=== PATIENT | male | born 1965 | race Caucasian/White ===

== ENCOUNTER → 2021-08-24 16:00 | Outpatient (CLI) | payer OTHER, SELFPAY ==
[2021-08-24 18:04] LABS: Alanine Aminotransferase 25 U/L (12-78); Albumin Level 4.5 g/dl (3.5-5.0); Albumin/Globulin Ratio 1.8 (1.1-1.8); Alkaline Phosphatase 63 U/L (38-126); Anion Gap 11.5 mEq/L (5-15); Aspartate Amino Transferase 31 U/L (17-59); Bilirubin,Total 0.6 mg/dl (0.2-1.3); Blood Urea Nitrogen 9 mg/dl (9-20); Calcium 9.1 mg/dl (8.4-10.2); Carbon Dioxide 28 mmol/L (22.0-30.0); Chloride 104 mmol/L (98-107); Estimated Glomerular Filt Rate 88 ml/min (>60); GFR (African American) 106 ML/MIN (>60); Globulin 2.5 g/dL (1.3-3.2); Glucose 85 mg/dl (74-100); Potassium 4.5 mmoL/L (3.5-5.1); Sodium 139 mmol/L (136-145)
[2021-08-24 18:12] LABS: Basophils # 0.1 K/mm3 (0-0.2); Basophils % 0.7 % (0.1-2.0); Eosinophils # 0.5 K/mm3 (0.0-0.4); Eosinophils % 4.2 % (0.1-12.0); Hematocrit 48.2 % (42.0-52.0); Hemoglobin 16.4 g/dL (14.1-18.0); Lymphocytes # 3.1 K/mm3 (0.7-4.5); Lymphocytes % 26.7 % (10-50); Mean Corpuscular HGB Conc 33.9 g/dL (31.8-35.4); Mean Corpuscular Hemoglobin 32.3 pg (27.0-31.2); Mean Corpuscular Volume 95.3 fl (80-94); Monocytes # 0.8 K/mm3 (0.1-1.0); Monocytes % 6.9 % (1.7-9.3); Neutrophils # 7.2 K/mm3 (1.8-7.8); Neutrophils % 61.5 % (37.0-80.0); Platelet Count 320 K/mm3 (142-424); Red Blood Count 5.06 M/mm3 (4.60-6.20); White Blood Count 11.6 K/mm3 (4.8-10.8)
[2021-08-24 18:14] LABS: Hemoglobin A1C 5.3 % (4.0-6.0)
[2021-08-24 18:34] LABS: Thyroid Stimulating Hormone 2.14 uIU/mL (0.465-4.68)
== END ==
PROVIDERS: Visit Provider Family Medicine
DX: Z00.00 Encounter for general adult medical examination without abnormal findings (principal); Z79.899 Other long term (current) drug therapy
CPT/HCPCS: 80053; 83036; 84443; 85025

== ENCOUNTER → 2021-11-23 12:19 | Outpatient (CLI) | payer SELFPAY ==
--- NOTE | 2021-11-23 12:22 | XR_ITS ---
FINAL REPORT CLINICAL HISTORY: cough x's months FINDINGS: 2 views of the chest were obtained . 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 The heart is normal in size. The mediastinum is within normal limits. The lungs are clear. There is no pneumothorax. Osseous structures demonstrate postoperative changes of the left clavicle. IMPRESSION: No acute cardiopulmonary process. Reviewed, Interpreted and Dictated by Danny Barrios III, MD Transcribed by Sara Dee Authenticated by Danny Barrios III, MD on 11/23/2021 01:37:34 PM [facility]
== END ==
PROVIDERS: PCP Family Medicine; Visit Provider Family Medicine
DX: R05.9 Cough, unspecified (principal)
CPT/HCPCS: 71046

== ENCOUNTER → 2022-04-05 13:15 | Outpatient (CLI) | payer OTHER, SELFPAY | PROVIDERS: PCP Family Medicine; Visit Provider Family Medicine | DX: R31.9 Hematuria, unspecified (principal); B95.2 Enterococcus as the cause of diseases classified elsewhere | CPT/HCPCS: 87086; 87088; 87186 ==

== ENCOUNTER → 2022-09-24 09:43 | Outpatient (CLI) | payer OTHER, SELFPAY ==
--- NOTE | 2022-09-24 09:47 | XR_ITS ---
FINAL REPORT TECHNIQUE: Chest PA & Lateral CLINICAL HISTORY: wheezing COMPARISON: 11/23/2021 FINDINGS: 2 views of the chest were performed. The heart size is at the upper limits of normal. The mediastinum is within normal limits. There are chronic changes in both lungs. There are no pleural effusions. There is no pneumothorax. There is a side plate and screws securing a healed fracture of the left clavicle. IMPRESSION: Chronic changes in both lungs with no acute cardiopulmonary process. Reviewed, Interpreted and Dictated by Nimesh Lizama MD Transcribed by Jocy Stewart Authenticated and [facility]
[2022-09-24 10:31] LABS: Basophils # 0.1 K/mm3 (0-0.2); Basophils % 0.8 % (0.1-2.0); Eosinophils # 0.3 K/mm3 (0.0-0.4); Eosinophils % 2.8 % (0.1-12.0); Hematocrit 44.6 % (42.0-52.0); Hemoglobin 14.7 g/dL (14.1-18.0); Lymphocytes # 2.2 K/mm3 (0.7-4.5); Lymphocytes % 18.3 % (10-50); Mean Corpuscular Hemoglobin 31.6 pg (27.0-31.2); Mean Corpuscular Volume 95.9 fl (80-94); Mean Platelet Volume 8.7 fl (7.4-10.4); Monocytes # 0.9 K/mm3 (0.1-1.0); Monocytes % 7.3 % (1.7-9.3); Neutrophils # 8.6 K/mm3 (1.8-7.8); Neutrophils % 70.7 % (37.0-80.0); Platelet Count 302 K/mm3 (142-424); Red Blood Count 4.66 M/mm3 (4.60-6.20); Red Cell Distribution Width 13.4 % (11.5-17.5); White Blood Count 12.2 K/mm3 (4.8-10.8)
[2022-09-24 11:15] LABS: Alanine Aminotransferase 30 U/L (12-78); Albumin Level 4.3 g/dl (3.5-5.0); Alkaline Phosphatase 55 U/L (38-126); Anion Gap 11.5 mEq/L (5-15); Aspartate Amino Transferase 31 U/L (17-59); Bilirubin,Direct 0.3 mg/dl (0.0-0.4); Bilirubin,Indirect 0.3 mg/dL (0.0-0.9); Bilirubin,Total 0.6 mg/dl (0.2-1.3); Bilirubin,Unconjugated 0.3 mg/dL (0.0-1.1); Blood Urea Nitrogen 11 mg/dl (9-20); Calcium 8.7 mg/dl (8.4-10.2); Carbon Dioxide 29 mmol/L (22.0-30.0); Chloride 102 mmol/L (98-107); Chol/HDL Ratio 3.1 (1-3.5); Cholesterol 132 mg/dl (140-200); Estimated Glomerular Filt Rate 100 ml/min (>60); GFR (African American) 121 ML/MIN (>60); Glucose 88 mg/dl (74-100); HDL Cholesterol 43 mg/dl (40-60); Magnesium 2.2 mg/dl (1.6-2.3); Potassium 4.5 mmoL/L (3.5-5.1); Sodium 138 mmol/L (136-145); Total Protein,Serum 6.5 g/dl (6.3-8.2); Triglycerides 54 mg/dl (30-150); VLDL Cholesterol 11 mg/dL (0-40)
[2022-09-24 11:26] LABS: Direct LDL Cholesterol 81.98 mg/dL (100-129)
[2022-09-24 11:31] LABS: Free T4 (Free Thyroxine) 1.12 ng/dl (0.78-2.19)
[2022-09-24 11:46] LABS: Thyroid Stimulating Hormone 0.86 uIU/mL (0.465-4.68)
== END ==
PROVIDERS: PCP Family Medicine; Visit Provider Physician Assistant
DX: R06.00 Dyspnea, unspecified (principal); R07.9 Chest pain, unspecified; I10 Essential (primary) hypertension; R94.31 Abnormal electrocardiogram [ECG] [EKG]; E66.9 Obesity, unspecified; Z68.41 Body mass index [BMI] 40.0-44.9, adult
CPT/HCPCS: 36415; 71046; 80048; 80061; 80076; 83735; 84439; 84443; 85025

== ENCOUNTER → 2023-04-04 09:41 | Outpatient (CLI) | payer OTHER, SELFPAY | PROVIDERS: PCP Family Medicine; Visit Provider Family Medicine | DX: R06.09 Other forms of dyspnea (principal) ==

== ENCOUNTER → 2023-04-05 09:08 | Outpatient (CLI) | payer OTHER, SELFPAY ==
[2023-04-04 18:52] LABS: Basophils # 0.1 K/mm3 (0-0.2); Basophils % 0.3 % (0.1-2.0); Eosinophils # 0.1 K/mm3 (0.0-0.4); Eosinophils % 0.3 % (0.1-12.0); Hematocrit 48.1 % (42.0-52.0); Hemoglobin 15.7 g/dL (14.1-18.0); Lymphocytes # 1.5 K/mm3 (0.7-4.5); Lymphocytes % 9.1 % (10-50); Mean Corpuscular HGB Conc 32.7 g/dL (31.8-35.4); Mean Corpuscular Hemoglobin 31.7 pg (27.0-31.2); Mean Corpuscular Volume 96.8 fl (80-94); Mean Platelet Volume 10.4 fl (7.4-10.4); Monocytes # 0.7 K/mm3 (0.1-1.0); Monocytes % 4.2 % (1.7-9.3); Neutrophils # 14.2 K/mm3 (1.8-7.8); Neutrophils % 86.1 % (37.0-80.0); Platelet Count 322 K/mm3 (142-424); Red Blood Count 4.97 M/mm3 (4.60-6.20); Red Cell Distribution Width 13.6 % (11.5-17.5); White Blood Count 16.5 K/mm3 (4.8-10.8)
[2023-04-04 19:01] LABS: MANUAL DIFFERENTIAL MANUAL DIFFERENTIAL (MANUAL DIFF)
[2023-04-04 19:03] LABS: Alanine Aminotransferase 33 U/L (12-78); Albumin Level 4.4 g/dl (3.5-5.0); Albumin/Globulin Ratio 1.5 (1.1-1.8); Alkaline Phosphatase 67 U/L (38-126); Anion Gap 15.5 mEq/L (5-15); Aspartate Amino Transferase 33 U/L (17-59); Bilirubin,Total 0.6 mg/dl (0.2-1.3); Blood Urea Nitrogen 15 mg/dl (9-20); Calcium 9.4 mg/dl (8.4-10.2); Carbon Dioxide 27 mmol/L (22.0-30.0); Chloride 103 mmol/L (98-107); Chol/HDL Ratio 3.8 (1-3.5); Cholesterol 181 mg/dl (140-200); Estimated Glomerular Filt Rate 87 ml/min (>60); GFR (African American) 106 ML/MIN (>60); Globulin 2.9 g/dL (1.3-3.2); Glucose 98 mg/dl (74-100); HDL Cholesterol 48 mg/dl (40-60); Potassium 4.5 mmoL/L (3.5-5.1); Sodium 141 mmol/L (136-145); Total Protein,Serum 7.3 g/dl (6.3-8.2); Triglycerides 57 mg/dl (30-150); VLDL Cholesterol 11 mg/dL (0-40)
[2023-04-04 19:13] LABS: Direct LDL Cholesterol 106.06 mg/dL (100-129)
[2023-04-04 19:33] LABS: Prostate Specific Ag Screen 1.2 ng/ml (0.0-4.0)
[2023-04-04 19:37] LABS: Eosinophils % 2 % (0-3); Lymphocytes % 10 % (10-50); Monocytes % 2 % (2-9); Neutrophils % 86 % (42-76); Platelet Estimate Normal; RBC Morphology Normal; Total Cells Counted 100
== END ==
LOC: LAB.DROPOF 09:10
PROVIDERS: Visit Provider Family Medicine
DX: R06.09 Other forms of dyspnea (principal); I10 Essential (primary) hypertension; F41.9 Anxiety disorder, unspecified; N52.9 Male erectile dysfunction, unspecified; E66.9 Obesity, unspecified; Z68.41 Body mass index [BMI] 40.0-44.9, adult; Z87.891 Personal history of nicotine dependence
CPT/HCPCS: 80053; 80061; 85007; 85025; G0103

== ENCOUNTER → 2023-04-18 07:06 | Outpatient (CLI) | payer OTHER, SELFPAY ==
--- NOTE | 2023-04-18 07:11 | NM_ITS ---
APPROVED REPORT Exam: Nuclear Stress Test Indication: chest pain..soa..fatigue Patient Location: Outpatient Stress Tech: Margareth Romeo [place] Tech:RADHAMES Hickman RT(R)(N) Ht: 6 ft 0 in Wt: 326 lbs HR: 63 bpm BP: 131/71 mmHg BSA: 2.62 m2 Rhythm: NSR TID: 1.28 History: chest pain..soa..fatigue Procedure: Patient received 0.4 mg of intravenous Lexiscan, resting heart rate 63 bpm, resting blood pressure 131/71 mmHg, with Lexiscan maximum heart rate achieved was 79 bpm which is 85 % of the maximum predicted heart rate and blood pressure was 141/69 mmHg. With Lexiscan, patient denied any complaint of chest pain. Cardiac Stress and Resting SPECT Images: Cardiac Stress and Resting SPECT images were obtained using technetium 99m Myoview 31.5 mCi stress and 10.90 mCi at rest. Resting and stress imaging in supine and prone positions demonstrate a medium sized, moderate, partially reversible perfusion defect in the basal to mid inferior LV wall. There is increased transient ischemic dilatation ratio (TID 1.28), suggestive of possible multivessel disease or balanced ischemia. Gated imaging demonstrates normal global LV systolic function. There is mild hypokinesis of the basal inferior LV wall. LVEF is calculated at 54%. Conclusion: Medium sized, moderate, partially reversible perfusion defect in the basal to mid inferior LV wall. There is increased transient ischemic dilatation ratio (TID 1.28), suggestive of possible multivessel disease or balanced ischemia. Gated imaging demonstrates normal global LV systolic function. There is mild hypokinesis of the basal inferior LV wall. LVEF is calculated at 54%. Electronically signed by : Santa Gavin MD 04/22/2023 21:11:59
--- NOTE | 2023-04-18 07:14 | CA_ITS ---
APPROVED REPORT EXAM: Comprehensive 2D, Doppler, and color-flow Echocardiogram Environmental Manager: Sara Morton CRT Ht: 6 ft 0 in Wt: 326lbs BSA: 2.62 BP: 128/64 mmHg Indications: Chest Pain, Obesity, Dyspnea, Peripheral Edema 2D Dimensions LVOT 2.02 cm (M/F) 1.5-2.5 LA Volume 38.70 mL LA Volume Index 14.40 mL/m2 (M/F) 16-34 M-Mode Dimensions RVDd 2.90 cm (0.9-2.6) LA Diam 3.37 cm (1.9-4.0) LVDd 6.20 cm (3.5-5.7) Ao Diam 4.43 cm (2.0-3.7) LVDs 4.31 cm (3.5-5.7) IVSd 1.41 cm (0.6-1.1) PWd 0.64 cm (0.6-1.1) EF (Teich) 57.00% FS 30.50% EDV (Teich) 194.00 mL ESV (Teich) 83.50 mL LV Diastology E Decel Time 183.00 (160-240 msec) E/A Ratio 1.04 MED E' 10.70 (< 7 cm/sec) MED A' 12.50 cm/s E'/MED E' Ratio 7.26 (>14) LAT E' 10.10 (<10 cm/sec) LAT A' 9.80 cm/s E/LAT E' Ratio 7.69 (>14) Aortic Valve AO Peak GR. 6.60 mmHg Mitral Valve MV A Velocity 75.00 (40-130 cm/s) E/A Ratio 1.04 MV Decel. Time 183.00 (160-240 ms) Pulmonary Valve PV Peak Velocity 119.00 (50-150 cm/s) Tricuspid Valve TR P. Velocity 180.00 cm/s RAP Estimate 10.00 mmHg RVSP 22.90 mmHg Left Ventricle The left ventricle is normal size when adjusted for body surface area. The left ventricular systolic function is low normal. There is normal there is increased LV wall thickness. There is borderline global hypokinesis present. The left ventricular diastolic function is normal. LVEF is 50%. Right Ventricle The right ventricle is normal size. The right ventricular systolic function is normal. Atria The left atrium size is normal. The right atrium size is normal. There is no Doppler evidence of interatrial shunt. Aortic Valve The aortic valve opens well. There is no aortic valvular stenosis. Trace aortic regurgitation. Mitral Valve The mitral valve is normal in structure. No evidence of mitral valve stenosis. Mild mitral regurgitation. Tricuspid Valve The tricuspid valve leaflets are thin and pliable. Mild tricuspid regurgitation. RVSP is normal. Pulmonic Valve The pulmonary valve is normal in structure. Trace pulmonic regurgitation. Great Vessels The aortic root is normal in size. The ascending aorta is normal in size. IVC is normal in size and collapses >50% with inspiration. Pericardium There is no pericardial effusion. Other Information Study Quality: Fair Conclusion Normal LV size with low-normal LV systolic function (LVEF 50%). Mild MR, mild TR. Electronically signed by : Santa Gavin MD 04/19/2023 21:27:58
--- NOTE | 2023-04-18 09:18 | CA_ITS ---
APPROVED REPORT Exam: Pharmacologic Technologist: Margareth Jean, Ht: 6 ft 0 in Wt: 326 lbs BSA: 2.62 m2 HR: 62 bpm BP: 131/71 mmHg Rhythm: NSR Medical History Medications: Alprazolam,,,,, Aspirin,,,,, Flomax,,,,, Losartan,,,,, Duoneb,,,,, Albuterol,,,,, Prednisone,,,,, Fluoxetine,,,,, CiALIS,,,,, TorSEMIDE,,,,, Trelegy Ellipta,,,,, Potassium Chloride ER,,,,, Stress Test Details Test: LEXISCAN Reason for pharmacologic stress test: physical limitation. HR Resting HR: 63 bpm Max Heart Rate (APMHR): 164 bpm Max HR Achieved: 79 bpm Target HR (85% APMHR): 139 bpm % of APMHR: 48 Recovery HR: 65 bpm BP Resting BP: 131.0/71.0 mmHg Max BP: 141.0/69.0 mmHg Recovery BP: 120.0/66.0 mmHg ECG Resting ECG: NSR, NS ST-T abns inferiorly & laterally Stress ECG: No significant ST changes Arrhythmia: None Clinical Exercise duration: 04:00 min Highest Stage Achieved: Exercise capacity: 1.0 METs Stress ECG Conclusion Symptoms: Mild SOA, chest & stomach discomfort. Mild head discomfort. Arrhythmias/Ectopy: None. ST-T Changes: No significant ST changes Conclusion: Non-diagnostic Lexiscan stress due to baseline abnormalities. Myoview images reported separately. Test Summary REST . . . . . . . Resting REST 02:59 . . 63 . 131/ 71 . . Stage 1 01:00 . . 69 . . . . Stage 2 01:00 . . 74 . . . . Stage 3 01:00 . . 72 . 122/ 64 . . Stage 4 01:00 . . 69 . 127/ 65 . Stop exercise at 04:00 RECOVERY 01:00 . . 69 . . . . RECOVERY 02:00 . . 79 . 141/ 69 . . RECOVERY 03:00 . . 67 . 141/ 69 . . RECOVERY 03:24 . . 65 . 120/ 66 . . Electronically signed by : Santa Gavin MD 04/22/2023 21:09:25
[2023-04-18 10:20] VITALS: PULSE 55; PULSE 63
== END ==
LOC: RAD 07:06
PROVIDERS: PCP Family Medicine; Visit Provider Family Medicine
DX: R06.00 Dyspnea, unspecified (principal); R07.9 Chest pain, unspecified; E66.9 Obesity, unspecified; I10 Essential (primary) hypertension; R94.31 Abnormal electrocardiogram [ECG] [EKG]; Z68.41 Body mass index [BMI] 40.0-44.9, adult
CPT/HCPCS: 78452; 93017; 93306; 94060; 94640; A9502; J2785

== ENCOUNTER 2023-05-09 08:24 | Day surgery (SDC) | payer OTHER, SELFPAY ==
[2023-05-09] VITALS (13 sets, daily range): BP systolic 125–180; BP diastolic 67–98; PULSE 60–85; RESP 17–20; O2SAT 95–98; BMI 45.1
--- NOTE | 2023-05-09 07:08 | IR_ITS ---
APPROVED REPORT Patient Location: Outpatient Button Cutter: RADHAMES Hoffman RT (R) PROCEDURES Left heart catheterization Left ventriculogram Selective coronary angiogram INDICATION Abnormal Myoview, Angina pectoris Informed consent was obtained prior to the procedure. COMPLICATIONS NONE Estimated Blood Loss: LESS THAN 10 ML TECHNIQUE One percent lidocaine used to anesthetize the right anterior aspect of the wrist. The right radial artery was accessed via the Seldinger technique. A 6 Indian sheath was placed in the right radial artery. 2.5 mg of Verapamil, 800 mcg of nitroglycerin, 1mg Lidocaine and 5000 U Heparin were given through the arterial sheath. The papa catheter was also used to perform left heart catheterization, left ventriculogram and selective coronary angiogram. At the end of the procedure the sheath was removed good hemostasis was achieved using Traclet band, patient was transferred to the postop holding area in stable condition. ANGIOGRAPHIC RESULTS The left main artery Normal The left anterior descending artery Mild proximal and mid vessel 10% luminal irregularities The circumflex artery Mild proximal and mid vessel 10% luminal irregularities The right coronary artery Dominant with mild diffuse 10% luminal irregularities The LORENZO ventriculogram reveals Normal 65% The left ventricular end-diastolic pressure Elevated at 25 mmHg IMPRESSION Mild nonflow limiting luminal regularities Normal ejection fraction Elevated LVEDP PLAN 1. Risk factor modification 2. Treatment of diastolic dysfunction 3. Recommend sleep study Electronically signed by : Gorge Ward MD 05/09/2023 10:56:03
[2023-05-09 09:14] LABS: Basophils # 0.1 K/mm3 (0-0.2); Basophils % 0.6 % (0.1-2.0); Eosinophils # 0.4 K/mm3 (0.0-0.4); Eosinophils % 2.9 % (0.1-12.0); Hemoglobin 15.1 g/dL (14.1-18.0); Lymphocytes # 3.4 K/mm3 (0.7-4.5); Lymphocytes % 22.9 % (10-50); Mean Corpuscular HGB Conc 35.1 g/dL (31.8-35.4); Mean Corpuscular Hemoglobin 33.9 pg (27.0-31.2); Mean Corpuscular Volume 96.6 fl (80-94); Mean Platelet Volume 8.6 fl (7.4-10.4); Monocytes # 0.9 K/mm3 (0.1-1.0); Monocytes % 6.4 % (1.7-9.3); Neutrophils # 9.9 K/mm3 (1.8-7.8); Neutrophils % 67.3 % (37.0-80.0); Platelet Count 289 K/mm3 (142-424); Red Blood Count 4.45 M/mm3 (4.60-6.20); Red Cell Distribution Width 13.9 % (11.5-17.5); White Blood Count 14.7 K/mm3 (4.8-10.8)
[2023-05-09 09:22] LABS: Chloride 103 mmol/L (98-107)
[2023-05-09 09:23] LABS: Sodium 139 mmol/L (136-145)
[2023-05-09 09:25] LABS: Blood Urea Nitrogen 17 mg/dl (9-20); Creatinine Clearance Estimated 91 mL/min (50-200); Estimated Glomerular Filt Rate 77 ml/min (>60); GFR (African American) 94 ML/MIN (>60)
[2023-05-09 09:26] LABS: Carbon Dioxide 31 mmol/L (22.0-30.0); Glucose 107 mg/dl (74-100)
== END 2023-05-09 13:53 | disposition home or self-care (01) ==
PROVIDERS: PCP Family Medicine; Visit Provider Internal Medicine
DX: I20.89 Other forms of angina pectoris (principal); E66.9 Obesity, unspecified; I10 Essential (primary) hypertension; R94.31 Abnormal electrocardiogram [ECG] [EKG]; R94.39 Abnormal result of other cardiovascular function study; F17.210 Nicotine dependence, cigarettes, uncomplicated; Z79.899 Other long term (current) drug therapy; Z68.42 Body mass index [BMI] 45.0-49.9, adult
CPT/HCPCS: 80048; 85025; 93458; 99152; C1725; C1760; C1769; J1644; Q9967

== ENCOUNTER 2025-03-25 10:00 | Outpatient (CLI) | payer OTHER, SELFPAY ==
[2025-03-25 15:05] LABS: Hematocrit 48.0 % (42.0-52.0); Hemoglobin 16.4 g/dL (14.1-18.0); Immature Granulocytes % 0.5 %; Mean Corpuscular HGB Conc 34.2 g/dL (31.8-35.4); Mean Corpuscular Hemoglobin 32.2 pg (27.0-31.2); Mean Corpuscular Volume 94.3 fl (80-94); Nucleated Red Blood Cells % 0 %; Platelet Count 265 K/mm3 (142-424); Red Blood Count 5.09 M/mm3 (4.60-6.20); Red Cell Distribution Width-SD 46.7 fL; White Blood Count 10.3 K/mm3 (4.8-10.8)
[2025-03-25 15:28] LABS: Albumin Level 4.3 g/dl (3.5-5.0); Chloride 102 mmol/L (98-107); Sodium 128 mmol/L (136-145)
[2025-03-25 15:29] LABS: Potassium 4.7 mmoL/L (3.5-5.1)
[2025-03-25 15:31] LABS: Alanine Aminotransferase 24 U/L (12-78); Albumin/Globulin Ratio 1.7 (1.1-1.8); Alkaline Phosphatase 66 U/L (38-126); Anion Gap 2.7 mEq/L (5-15); Aspartate Amino Transferase 36 U/L (17-59); Bilirubin,Total 0.7 mg/dl (0.2-1.3); Blood Urea Nitrogen 15 mg/dl (9-20); Carbon Dioxide 28 mmol/L (22.0-30.0); Cholesterol 152 mg/dl (140-200); Creatinine,Serum 1.00 mg/dl (0.66-1.25); Estimated Glomerular Filt Rate 77 ml/min (>60); GFR (African American) 93 ML/MIN (>60); Globulin 2.5 g/dL (1.3-3.2); Total Protein,Serum 6.8 g/dl (6.3-8.2); Triglycerides 107 mg/dl (30-150)
[2025-03-25 15:32] LABS: Calcium 9.8 mg/dl (8.4-10.2); Glucose 138 mg/dl (74-100); HDL Cholesterol 35 mg/dl (40-60)
[2025-03-25 16:02] LABS: Thyroid Stimulating Hormone 2.02 uIU/mL (0.465-4.68)
--- OUTSIDE RECORDS SUMMARY | 2025-03-28 10:22 | XMS_ITS | Clinical Summary ---
Author Organization [facility] Address [address] [place] [address] Phone Care Team Providers Care Kiln Hand Name Role Phone Flako Estevez MD Primary Care Provider [phone] Allergies No known active allergies Medications aspirin 325 mg Take 1 Tab by mouth daily. 30 Tab 11 3 Active metoprolol (LOPRESSOR) 25 mg Oral Tablet Take 1 Tab by mouth 2 times daily. 180 Tab 0 5 Active omeprazole (PRILOSEC) 40 mg Oral Capsule, Delayed Release(E.C.) Take 1 Cap by mouth daily. 90 Cap 1 5 Active Additional Information Patient not taking.Reason: Pt electing to not take the medication, Reported on 04/22/2020 ALPRAZolam (XANAX) 0.5 mg Oral Tablet Take by mouth as needed for Anxiety. Active oxyCODONE-aceta minophen (PERCOCET) 5-325 mg Oral Tablet Take 1 Tab by mouth every 4 hours as needed for Acute Pain (R52). 18 Tab 0 Active cyclobenzaprine (FLEXERIL) 10 mg Oral Tablet Take 10 mg by mouth 3 times daily. Active FLUoxetine (PROZAC) 20 mg Oral Capsule 3 Active tamsulosin (FLOMAX) 0.4 mg Oral Capsule 3 Active losartan/hydroc hlorothiazide (HYZAAR ORAL) HYZAAR TABS 3 Active fUROsemide (LASIX) 40 mg Oral Tablet 3 Active ciprofloxacin HCl (CIPRO) 500 mg Oral Tablet 3 Active potassium chloride (KLOR-CON M) 20 mEq Oral Tab Sust.Rel. Particle/Michell l 3 Active losartan (COZAAR) 100 mg Oral Tablet Take 100 mg by mouth daily. Active Active Problems Problem Noted Date Diagnosed Date Precordial pain 10/18/2022 Chest wall pain 10/18/2022 Chronic right shoulder pain 04/23/2020 Alcohol use 04/23/2020 Edema of right upper arm 04/22/2020 Mucous cyst of left middle finger 09/14/2014 Tobacco abuse 12/01/2012 Chest pain 12/01/2012 Overview (12/04/2012): Negative angiogram 11/2012 HTN (hypertension) 12/01/2012 HLD (hyperlipidemia) 12/01/2012 Arthritis Radiculopathy of leg Acute pain of right shoulder Pyogenic arthritis of shoulder region Immunizations Immunization Administration Dates Next Due Tdap 03/22/2020 Surgical History Surgery Date Site/Laterality Comments BACK SURGERY x2 VASECTOMY COLONOSCOPY Medical History Medical History Date Comments Radiculopathy of leg Arthritis Hypertension Shortness of breath GRIFFIN (dyspnea on exertion) Heartburn Osteoarthritis Headache(784.0) Family History Medical History Relation Name Comments Heart Disease Father High Blood Pressure Father Other Mother back pain Cancer Paternal Grandmother Other Sister migraines Anesth Problems Neg Hx Relation Name Status Comments Brother Alive Child 1 Alive Child 2 Alive Father Alive Maternal Grandfather Maternal Grandmother Mother Alive Paternal Grandfather Paternal Grandmother Sister Alive Social History Tobacco Use Types Packs/Day Years Used Date Smoking Tobacco: Every Day Cigarettes Smokeless Tobacco: Never Tobacco Cessation:Ready to Q uit: Yes Alcohol Use Standard Drinks/Week Comments Yes 0 (1 standard drink = 0.6 oz pur e alcohol) occ Sexually Active Control Partners Comments Yes Female Sex and Gender Information Value Date Recorded Sex Assigned at Not on file Legal Sex Male 5:55 PM EDT Gender Identity Not on file Sexual Orientation Not on file Obstetrics History Last Filed Vital Signs Vital Sign Reading Time Taken Comments Blood Pressure 140/86 10/18/2022 8:18 AM EDT Pulse 50 04/24/2020 3:45 PM EDT Temperature 36.7 C (98.1 F) 04/24/2020 3:45 PM EDT Respiratory Rate 16 04/24/2020 3:45 PM EDT Oxygen Saturation 98% 10/18/2022 8:18 AM EDT Inhaled Oxygen Concentration - - Weight 146.1 kg (322 lb) 10/18/2022 8:18 AM EDT Height 182.9 cm (6') 10/18/2022 8:18 AM EDT Body Mass Index 43.67 10/18/2022 8:18 AM EDT Plan of Treatment Health Maintenance Due Date Last Done Comments Hepatitis B Vaccine (1 of 3 - 19+ 3-dose series) 1986 Cologuard 01/21/2012 Colon Cancer Screening 01/21/2012 Colonoscopy 01/21/2012 FIT 01/21/2012 Sigmoidoscopy 01/21/2012 Virtual Colonography 01/21/2012 Annual Wellness Exam 05/13/2015 05/13/2014 Pneumococcal Vaccine 50+ (1 of 1 - PCV) 2017 Zoster (1 of 2) 2017 COVID-19 Vaccine (1 - 2023-2 5 season) 2025 Influenza Vaccine (#1) 2025 DTaP/TDaP/Td (2 - Td or Tdap) 03/22/2030 03/22/2020 Meningococcal B Vaccine Aged Out No l onger eligible based on patient's age to complete this topic Insurance Advance Directives For more information, please contact: [phone] * Full Code (Latest Code Status on File) Date Activated Date Inactivated Comments 04/22/2020 9:54 PM 04/25/2020 2:05 AM * Full Code Date Activated Date Inactivated Comments 12/01/2012 4:28 PM 12/02/2012 9:47 PM Care Teams Kiln Hand Relationship Specialty Start Date End Date Flako Estevez MD PCP - General Family Medicine 06/16/15
--- OUTSIDE RECORDS SUMMARY | 2025-03-28 10:22 | XMS_ITS | Clinical Summary ---
Author Organization [facility] Address [address] [place] [id number] Phone Care Team Providers Care Representative Phlebotomy Services Name Role Phone Outside, Provider Unavailable [phone] Conditions or Problems Problem Name Problem Code Onset Date Status Entry Date Provider Comment Standard Description Annotate BACK PAIN, LUMBAR 810306046 (SNOMED CT) Active Ham Nolasco MD Low back pain FOLLOW-UP EXAMINATION, AFTER SURGERY NEC Z09 (ICD-10-CM) Active Ham Nolasco MD Encounter for follow-up examination after completed treatment for conditions other than malignant neoplasm HERNIATED LUMBAR DISC 414436355 (SNOMED CT) Active Ham Nolasco MD Prolapsed lumbar intervertebral disc Take Note of POLYDIPSIA 14828416 (SNOMED CT) Active Dulce Blas ONDINA Excessive thirst Take Note of HEADACHE 66010681 (SNOMED CT) Active Dulce Wan ONDINA Headache Take Note of PAIN IN JOINT, MULTIPLE SITES 78846385 (SNOMED CT) Active Dulce Blas MA Pain of multiple joints Take Note of NECK PAIN 80313453 (SNOMED CT) Active Dulce Blas MA Neck pain Take Note of DIARRHEA 97510457 (SNOMED CT) Active Dulce Blas MA Diarrhea Take Note of NAUSEA 478580586 (SNOMED CT) Active Dulce Blas MA Nausea Take Note of COUGH 16908757 (SNOMED CT) Active Dulce Blas MA Cough Take Note of TINNITUS 86083581 (SNOMED CT) Active Dulce Blas MA Tinnitus Take Note of EAR PAIN 49433680 (SNOMED CT) Active Dulce Blas MA Otalgia Take Note of SWEATING 029192229 (SNOMED CT) Active Dulce Blas MA Sweating Take Note of FEVER, HX OF 824446546 (SNOMED CT) Active Dulce Blas MA History of clinical finding in subject Medications Medication Instructions Start Date Stop Date Generic Name NDC Provider VICODIN ES TABS (HYDROCODONE- ACETAMINOPHEN TABS) 7.5 /750 1 PO VICODIN ES TABS (HYDROCODONE-ACETAMI NOPHEN TABS) 7.5 /750 Ham Nolasco MD VICODIN ES 7.5-300 MG ORAL TABLET 1-2 PO Q 4-6 hrs. prn pain HYDROCODONE-ACETAMIN OPHEN [id number] Ham Nolasco MD VICODIN ES TABS (HYDROCODONE- ACETAMINOPHEN TABS) 7.5/750 1 PO QID VICODIN ES TABS (HYDROCODONE-ACETAMI NOPHEN TABS) 7.5/750 Ham Nolasco MD VICODIN ES 7.5-300 MG ORAL TABLET 1-2 PO Q 4-6 hrs. prn pain HYDROCODONE-ACETAMIN OPHEN [id number] Ham Nolasco MD MOBIC 15 MG ORAL TABLET 1 PO QD MELOXICAM [id number] Ham Nolasco MD VICODIN ES TABS (HYDROCODONE- ACETAMINOPHEN TABS) 7.5/750 1 PO QID VICODIN ES TABS (HYDROCODONE-ACETAMI NOPHEN TABS) 7.5/750 Ham Nolasco MD MEDROL 4 MG TBPK as directed METHYLPREDNISOLONE [id number] Ham Nolasco MD PREDNISONE 10 MG TABS 1 PO QID X 5 days then 1 PO TID X 5 days - then 1 PO BID X 3 days - then 1 PO QD X 3 days PREDNISONE [id number] Ham Nolasco MD MEDROL DOSE CHARLINE As directed MEDROL DOSE CHARLINE Ham Nolasco MD MOTRIN IB TABS [facility] IBUPROFEN TABS [id number] Ham Nolasco MD FLEXERIL 10 MG TABS [facility] CYCLOBENZAPRINE HCL [id number] Ham Nolasco MD PERCOCET 7.5-325 MG TABS [facility] OXYCODONE-ACETAMINOP HEN [id number] Ham Nolasco MD HYZAAR TABS [facility] LOSARTAN POTASSIUM-HCTZ TABS [id number] Lashanda Davis ASPIRIN EC 325 MG ORAL TABLET DELAYED RELEASE Diamond ASPIRIN [id number] Lashanda Ahumada Ryan PERCOCET 5-325 MG TABS 1-2 q 4-6 hrs prn pain OXYCODONE-ACETAMINOP HEN [id number] Ham Nolasco MD PREDNISONE 10 MG TABS 1 PO QID X 5 days then 1 PO TID X 5 days - then 1 PO BID X 3 days - then 1 PO QD X 3 days PREDNISONE [id number] Ham Nolasco MD MEDROL DOSE CHARLINE As directed MEDROL DOSE CHARLINE Vika Adams MA MOTRIN IB TABS [facility] IBUPROFEN TABS [id number] uDlce Blas MA FLEXERIL 10 MG TABS [facility] CYCLOBENZAPRINE HCL [id number] Dulce Blas MA PERCOCET 7.5-325 MG TABS [facility] OXYCODONE-ACETAMINOP HEN [id number] Dulce Blas MA Medications Administered No information available. Allergies, Adverse Reactions, Alerts Observed no known allergies at Results Date Name Value Unit Range Flag Description Clinical Lists Update: MRI B illing GFR 79 mL/min Glomerular fi ltration rate/1.73 sq M.predicted among non-blacks [Volume Rate/Area] in Serum, Plasma or Blood by Creatinine-based formula (MDRD) Plan of Care Type Date Detail Pending order MRI Lumbar w/o & w Gadolinium Procedures Code Procedure Name Date Entry Date 56965 MRI Lumbar Spine (with and without) 02/24 A9585 Gadavist Vital Signs Date Name Value Unit Description BMI (Body Mass Index) 40.00 kg/m2 Bod y Mass Index (Ratio) Height 72 [in_us] height E&M Weight Measured 295 [lb_av] weight E& M Weight Measured 295 [lb_av] weight E& M BP Diastolic 87 mm[Hg] blood pressu re, diastolic BP Systolic 121 mm[Hg] blood pressur e, systolic Body Temperature 98.1 [degF] temperat ure E&M Heart Rate 70 /min pulse rate Respiratory Rate 18 /min respirat ory rate E&M Immunizations No information available. Advance Directives No information available.
== END 2025-03-25 23:59 ==
LOC: LAB.DROPOF 03-28 10:05
PROVIDERS: PCP Nurse Practitioner Family; Visit Provider Nurse Practitioner Family
DX: Z12.5 Encounter for screening for malignant neoplasm of prostate (principal); F41.9 Anxiety disorder, unspecified; I10 Essential (primary) hypertension; F32.A Depression, unspecified; R79.89 Other specified abnormal findings of blood chemistry; E29.1 Testicular hypofunction
CPT/HCPCS: 80053; 80061; 84403; 84443; 85025; G0103